=== PATIENT | male | born 1995 | race Caucasian/White ===

== ENCOUNTER → 2019-12-04 | Outpatient (CLI) | payer OTHER | LOC: ZCOL.LAB 15:00 | DX: B34.9 Viral infection, unspecified (principal); Z20.828 Contact with and (suspected) exposure to other viral communicable diseases ==

== ENCOUNTER → 2019-12-05 | Outpatient (CLI) | payer OTHER | LOC: ZCOL.LAB 08:08 | DX: B34.9 Viral infection, unspecified (principal); I10 Essential (primary) hypertension; R53.83 Other fatigue; R19.7 Diarrhea, unspecified; R43.9 Unspecified disturbances of smell and taste; Z20.828 Contact with and (suspected) exposure to other viral communicable diseases ==